=== PATIENT | male | born 1995 | race Caucasian/White ===

== ENCOUNTER 2016-11-11 10:28 | Emergency (ER) | payer OTHER ==
[~2016-11-11] VITALS: Ht 180.3 cm; Wt 97.5 kg
[2016-11-11 10:35] VITALS: BP_SYST 145
--- NOTE | 2016-11-11 10:44 | NUR ---
Patient placed to bed 2. Gown on for exam. quality assurance monitor, pulse ox, and bp cuff placed on patient. Patient states he was playing football this morning, was hit by another player to his left shoulder. He has passive range of motion to left should, tender to touch, no deformities noted. No other complaints, injuries per patient, none noted.
--- NOTE | 2016-11-11 10:47 | NUR ---
Dr. Alegria at bedside examing patient.
[2016-11-11] MEDS ORDERED: IBUPROFEN 600 MG TABLET PO ONE (11:30)
--- NOTE | 2016-11-11 12:29 | NUR ---
Patient resting quietly. No acute distress noted. Vital signs within normal range.
--- NOTE | 2016-11-11 12:30 | NUR ---
No adverse reaction to medication noted.
--- NOTE | 2016-11-11 13:10 | NUR ---
Patient given written and verbal discharge instructions and verbalizes understanding. ER MD discussed with patient the results and treatment provided. Patient in stable condition. ID arm band removed. Rx of Ultram given. Patient educated on pain management and to follow up with PMD. Pain Scale 0/10. Patient safely ambulated off unit, no incidence of fall. Opportunity for questions provided and answered.
[2016-11-11 13:11] VITALS: BP_SYST 118
== END 2016-11-11 13:11 | disposition home or self-care (01) ==
LOC: SED 10:28
DX: S46.812A Strain of other muscles, fascia and tendons at shoulder and upper arm level, left arm, initial encounter (principal); Z88.2 Allergy status to sulfonamides; Z88.8 Allergy status to other drugs, medicaments and biological substances; X58.XXXA Exposure to other specified factors, initial encounter; Y93.61 Activity, american tackle football; Y92.321 Football field as the place of occurrence of the external cause; Y99.8 Other external cause status
CPT/HCPCS: 73030; 99284